=== PATIENT | male | born 1945 | race Caucasian/White ===

== ENCOUNTER → 2019-03-02 | Day surgery (SDC) | payer MEDICARE, OTHER ==
[~2019-03-02] MED LIST: AMPI500C68 PO; AMPICILLIN PO; ASPI-1198 PO; ASPI1CPM8 PO; BUPIVACAINE HCL/PF 0.5% 30 ML VIAL ONE; CALC-451 PO; CLOP75TA3 PO; CeFAZolin 1 GM/DEXTROSE 50 ML IV ONE; CeFAZolin 2 GM/DEXTROSE 0 ML IV ONE; DSS100 PO; GABA-531 PO; HUM10VIA6 SQ; INSNOV; INSU100I26 SQ; LEVO125T4 PO; LEVO137T24 PO; LIDOCAINE 2%/EPI 1:200,000/PF 20 ML VIAL ONE; METF-960 PO; MetroNIDAZOLE 500 MG/NACL 100 ML IV ONE; OXYC-530 PO; PRAZ1 PO; RINGERS SOLUTION,LACTATED 0 ML IV ONE; RINGERS SOLUTION,LACTATED 1,000 ML IV ONE; SIMV-260 PO; SIMV-261 PO; SITA100 PO; SULF1TAB42 PO; TAMS-1 PO; VITAD5000 PO
== END | disposition home or self-care (01) ==
LOC: SURGERY 08:30
PROVIDERS: ATTEND Surgery
DX: K40.91 Unilateral inguinal hernia, without obstruction or gangrene, recurrent (principal); Z53.8 Procedure and treatment not carried out for other reasons
CPT/HCPCS: J0690; J3490; J7120

== ENCOUNTER 2019-03-07 12:22 | Day surgery (SDC) | payer MEDICARE, OTHER ==
[~2019-03-07] VITALS: Ht 167.6 cm; Wt 60.9 kg
[~2019-03-07 12:22] MED LIST changes: -AMPICILLIN PO; -ASPI-1198 PO; -ASPI1CPM8 PO; -BUPIVACAINE HCL/PF 0.5% 30 ML VIAL ONE; -CALC-451 PO; -CeFAZolin 1 GM/DEXTROSE 50 ML IV ONE; -CeFAZolin 2 GM/DEXTROSE 0 ML IV ONE; +CeFAZolin 2 GM/DEXTROSE 50 ML IV ONE; -DSS100 PO; -HUM10VIA6 SQ; -INSNOV; -LEVO125T4 PO; -LIDOCAINE 2%/EPI 1:200,000/PF 20 ML VIAL ONE; -MetroNIDAZOLE 500 MG/NACL 100 ML IV ONE; -PRAZ1 PO; -RINGERS SOLUTION,LACTATED 0 ML IV ONE; -SIMV-260 PO; -SITA100 PO; -VITAD5000 PO
[2019-03-07] MEDS ORDERED: PROPOFOL 1% 20 ML VIAL IVP ONE (12:23)
[2019-03-07] MEDS ORDERED: LIDOCAINE/PF 2% 5 ML VIAL IM ONE (12:23)
[2019-03-07] MEDS ORDERED: ESMOLOL HCL 10 MG/ML 10 ML VIAL IVP ONE (12:23)
[2019-03-07] MEDS ORDERED: FentaNYL CITRATE-PF 100 MCG/2 ML VIAL IVP ONE (12:23)
[2019-03-07] MEDS ORDERED: ROCURONIUM BROMIDE 10 MG/ML 5 ML VIAL IVP ONE (12:23)
[2019-03-07] MEDS ORDERED: ONDANSETRON HCL 4 MG/2 ML VIAL IVP ONE (12:23)
[2019-03-07] MEDS ORDERED: RINGERS SOLUTION,LACTATED 1,000 ML IV ONE ×2 (12:30→14:57)
[2019-03-07] MEDS ORDERED: LIDOCAINE 2%/EPI 1:200,000/PF 20 ML VIAL ONE (12:38)
[2019-03-07] MEDS ORDERED: BUPIVACAINE HCL/PF 0.5% 30 ML VIAL ONE (12:38)
[2019-03-07 12:54] LABS: BASOPHILS % (AUTO) 0.4 % (0.0-2.0); EOSINOPHILS % (AUTO) 1.1 % (1.0-6.0); HEMOGLOBIN 12.1 g/dL (13.5-17.5); LYMPHOCYTES # (AUTO) 1.7 K/uL (1.0-4.8); LYMPHOCYTES % (AUTO) 18.1 % (22.0-44.0); MEAN CORPUSCULAR HEMOGLOBIN 30.1 pg (26.0-34.0); MEAN CORPUSCULAR HGB CONC 32.8 G/dL (31.0-37.0); MEAN CORPUSCULAR VOLUME 92 fL (80-100); MONOCYTES # (AUTO) 0.6 K/uL (0.1-1.0); MONOCYTES % (AUTO) 5.8 % (2.0-9.0); NEUTROPHILS # (AUTO) 7.1 K/uL (1.8-7.7); NEUTROPHILS % (AUTO) 74.6 % (40.0-70.0); PLATELET COUNT (AUTO) 452 K/uL (150-450); RED BLOOD CELL COUNT(AUTO) 4.04 MIL/uL (4.50-5.90); RED CELL DISTRIBUTION WIDTH 13.6 % (11.5-14.5)
[2019-03-07 13:03] LABS: ANION GAP 10 mmol/L (8-16); CALCIUM, TOTAL 9.6 mg/dL (8.8-10.5); CARBON DIOXIDE 27 mmol/L (22-29); CHLORIDE 101 mmol/L (98-107); CREATININE 0.95 mg/dL (0.60-1.30); GLOMERULAR FILTR. RATE CALC > 60 mL/min (>60); GLUCOSE,RANDOM 135 mg/dL (70-110); POTASSIUM 4.9 mmol/L (3.5-5.1); SODIUM SERUM 138 mmol/L (136-145); UREA NITROGEN, BLOOD 28 mg/dL (7-18)
[2019-03-07 13:08] LABS: INR 1.1 (0.9-1.1)
[2019-03-07 13:09] LABS: ALANINE AMINOTRANSFERASE 24 U/L (12-78); ALBUMIN 3.8 g/dL (3.4-5.0); ALKALINE PHOSPHATASE 100 U/L (46-116); ASPARTATE AMINOTRANSFERASE 15 U/L (15-37); BILIRUBIN,TOTAL 0.3 mg/dL (0.1-1.0); TOTAL PROTEIN, SERUM 8.4 g/dL (6.4-8.2)
[2019-03-07] MEDS ORDERED: MEPERIDINE-PF 25 MG/ML VIAL IVP PRN (14:00)
[2019-03-07] MEDS ORDERED: HYDROmorphone 2 MG/ML SYRINGE IVP PRN (14:00)
[2019-03-07] MEDS ORDERED: FentaNYL CITRATE-PF 100 MCG/2 ML VIAL IVP PRN (14:00)
[2019-03-07] MEDS ORDERED: SUGAMMADEX SODIUM 200 MG/2 ML VIAL IVP ONE (14:19)
[2019-03-07] MEDS ORDERED: CeFAZolin 2 GM/DEXTROSE 50 ML IV ONE (14:30)
[2019-03-07] MEDS ORDERED: ACETAMINOPHEN 500 MG TABLET PO PRN (15:45)
[2019-03-07] MEDS ORDERED: IBUPROFEN 800 MG TABLET PO PRN (15:45)
[2019-03-07] MEDS ORDERED: IBUPROFEN 800 MG TABLET ONE (16:31)
[2019-03-07] MEDS ORDERED: ACETAMINOPHEN 1000 MG/ISO-OSM 100 ML IV ONE ×2 (17:10)
[2019-03-07] MEDS ORDERED: KETOROLAC TROMETHAMINE 30 MG/ML VIAL ONE (17:10)
[2019-03-07] MEDS ORDERED: CYCLOBENZAPRINE HCL 10 MG TABLET PO ONE (17:10)
[2019-03-07] MEDS ORDERED: KETOROLAC TROMETHAMINE 30 MG/ML VIAL IVP ONE (17:10)
[2019-03-07] MEDS ORDERED: OXYGEN THERAPY IH SCH (20:00)
== END 2019-03-07 19:05 | disposition home or self-care (01) ==
LOC: SURGERY 12:22
PROVIDERS: ATTEND Surgery
DX: K40.30 Unilateral inguinal hernia, with obstruction, without gangrene, not specified as recurrent (principal); D17.6 Benign lipomatous neoplasm of spermatic cord; E03.9 Hypothyroidism, unspecified; I10 Essential (primary) hypertension; E11.9 Type 2 diabetes mellitus without complications; Z86.73 Personal history of transient ischemic attack (TIA), and cerebral infarction without residual deficits; E78.00 Pure hypercholesterolemia, unspecified; Z87.19 Personal history of other diseases of the digestive system; Z98.890 Other specified postprocedural states; Z79.899 Other long term (current) drug therapy; Z83.3 Family history of diabetes mellitus; Z81.1 Family history of alcohol abuse and dependence; Z80.9 Family history of malignant neoplasm, unspecified; Z87.891 Personal history of nicotine dependence; Z98.42 Cataract extraction status, left eye; Z98.41 Cataract extraction status, right eye; Z79.4 Long term (current) use of insulin
CPT/HCPCS: 36415; 49507; 80053; 85025; 85610; 85730; 88302; 88304; C1716; J0131; J0690 ×2; J1885; J2405; J2704; J3010; J3490 ×4; J7120